=== PATIENT | male | born 1950 | race Caucasian/White ===

== ENCOUNTER 2016-06-07 14:50 | Emergency (ER) | payer OTHER ==
[~2016-06-07] VITALS: Ht 172.7 cm; Wt 76.2 kg
[2016-06-07 14:54] VITALS: BP 157/97
[2016-06-07] MEDS ORDERED: LISINOPRIL5 M1 PO (16:02)
[2016-06-07] MEDS ORDERED: METOPROLOL TART25 M1 PO (16:02)
--- NOTE | 2016-06-07 16:03 | ULTRASOUND REPORT ---
EXAMINATION: US TRIPLEX LOWER EXTREMITY, LEFT CLINICAL INFORMATION: Left calf pain COMPARISON: None. TECHNIQUE: Color-flow triplex imaging with spectral analysis and compression Doppler were performed on the left lower extremity. FINDINGS: Respiratory variation, normal compression and augmented flow are noted throughout the lower extremity. The visualized common femoral vein, superficial femoral vein, profunda femoral vein, popliteal vein and midcalf peroneal and posterior tibial venous segments show no evidence of deep venous thrombosis. There is no Gonzalez's cyst. IMPRESSION: Normal triplex scan without evidence of deep venous thrombosis involving the left lower extremity.
--- NOTE | 2016-06-07 16:12 | ED UPPER/LOWER EXTREMITY COMPL ---
History of Present Illness General Chief Complaint: Lower Extremity Problems Stated Complaint: SENT BY MD DE LA FUENTE FOR LT LEG EVAL Source: patient Exam Limitations: no limitations Vital Signs & Intake/Output Vital Signs & Intake/Output Vital Signs Date Time Temp Pulse Resp B/P Pulse O2 O2 Flow FiO2 Ox Delivery Rate 06/07 1454 97.1 83 20 157/97 98 Room Air Allergies Coded Allergies: No Known Allergies (06/07/16) Reconcile Medications Lisinopril 5 MG TABLET 1 TAB PO DAILY HTN (Reported) Meloxicam (Mobic) 15 MG TABLET 1 TAB PO DAILY PRN PAIN Metoprolol Tartrate 25 MG TABLET 1 TAB PO BID HTN (Reported) Triage Note: C/O LEFT CALF PAIN SINCE 929. STATES HE WAS WALKING UP AN INCLINE WHEN THE PAIN BEGAN. 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 Triage Nurses Notes Reviewed? yes Onset: Gradual Duration: hour(s): (6) Timing: no prior history Severity: moderate Severity Numbers: 6 Pain/Injury Location: Left: Leg. Method of Injury: unknown Modifying Factors: Improves With: immobilization. Worsens With: movement. HPI: Patient is a 65-year-old male presenting to the emergency department with chief complaint of left calf pain that started 6 hours prior to arrival. Denies any known injury. Pain is achy throbbing worse with movement and palpation. He took an aspirin earlier today without relief. The pain was not improving so he decided to come in for evaluation. Denies numbness or tingling. Denies any nausea vomiting fevers or chills chest pain or shortness of breath. No history of blood clots. (YAAKOV ADDISON) Past History Travel History Traveled to [place] past 21 day No Medical History Any Pertinent Medical History? see below for history Cardiovascular: hypertension Surgical History Surgical History: non-contributory Psychosocial History What is your primary language Wallisian Tobacco Use: Quit >30 days ago ETOH Use: occasional use Illicit Drug Use: denies illicit drug use Family History Hx Contributory? No (YAAKOV ADDISON) Review of Systems Review of Systems Constitutional: Reports: no symptoms. Comments Review of systems: See HPI, All other systems negative. Constitutional, no chills fever or weight loss HEENT: No visual changes no sore throat no congestion Cardiovascular: No chest pain ,palpitation Skin, no jaundice no rashes Respiratory: No dyspnea cough sputum or hemoptysis GI: No nausea no vomiting : No dysuria No hematuria Muscle skeletal: no back pain, no neck pain, Neurologic: No numbness no confusion Psych: No stress anxiety Immunology: No splenectomy or history of AIDS (ELIDA DUNN,YAAKOV) Physical Exam Physical Exam General Appearance: well developed/nourished, no apparent distress, alert, awake , comfortable Comments: Well-developed well-nourished person in no acute distress HEENT: Pupils equally round and reactive to light and accommodation. Nose is atraumatic. Neck: Normal inspection Cardiovascular: Regular rate and rhythms no murmurs rubs or gallops, normal JVP Respiratory: Chest nontender. No respiratory distress.breath sounds clear to auscultation bilaterally Extremity: No edema, TENDER TO PALPATION OVER LEFT CALF, NO EDEMEA, ERYTHEMA OR ECHYMOSIS. NEGATIVE OCHOA SIGN. Pedal pulses are 2+ bilaterally. Full range of motion of lower extremities withouT difficulty. Left calf pain with dorsiflexion and plantar flexion of the left lower extremity. No pain to palpation over the left patella, left ankle or foot. Neuro: Alert oriented x3, motor sensory normal Skin: No appreciable rash on exposed skin, skin is warm and dry. Psych: Mood and affect is normal, memory and judgment is normal. (ELIDA DUNN,YAAKOV) Progress Differential Diagnosis: contusion, dislocation, DVT, fracture, sprain, tendon injury Plan of Care: Patient informed of negative venous Doppler. Likely muscle strain. Educated on warm compresses elevation. Patient will be given anti-inflammatories to help with pain. He'll follow-up with his primary care physician for worsening symptoms or concerns. Diagnostic Imaging: Viewed by Me: Ultrasound. Discussed w/RAD: Ultrasound. Radiology Impression: PATIENT: KASHIF MASTERS PRESENT AGE: 65 PATIENT ACCOUNT NO: [id number] : 50 LOCATION: [facility] ORDERING PHYSICIAN: YAAKOV DUNN SERVICE DATE: 06/07/16-8598 EXAM TYPE: US - US-UNILATERAL VENOUS DOPPLER EXAMINATION: US TRIPLEX LOWER EXTREMITY, LEFT CLINICAL INFORMATION: Left calf pain COMPARISON: None. TECHNIQUE: Color-flow triplex imaging with spectral analysis and compression Doppler were performed on the left lower extremity. FINDINGS: Respiratory variation, normal compression and augmented flow are noted throughout the lower extremity. The visualized common femoral vein, superficial femoral vein, profunda femoral vein, popliteal vein and midcalf peroneal and posterior tibial venous segments show no evidence of deep venous thrombosis. There is no Gonzalez's cyst. IMPRESSION: Normal triplex scan without evidence of deep venous thrombosis involving the left lower extremity. DICTATED BY: JOSE LUIS POSADAS MD DATE/TIME DICTATED:06/07/161558 STATIONARY EQUIPMENT MECHANIC:OLIVE DATE/TIME TRANSCRIBED:06/07/161558 Comments: Patient declined pain medication here in the emergency department. He was informed of negative ultrasound. Likely muscle strain. Patient will follow up with PCP. (YAAKOV ADDISON) Departure Departure Time of Disposition: 1616 Disposition: HOME OR SELF CARE Condition: Stable Clinical Impression Primary Impression: Calf pain Qualifiers: Laterality: left Qualified Code: M79.662 - Pain in left lower leg Referrals: LEISA FAUSTIN,JIMENEZ Leal (PCP/Family) Additional Instructions: Follow-up with your primary care physician call to make an appointment. Elevate as much as possible. Departure Forms: Customer Survey General Discharge Information Prescriptions: Current Visit Scripts Meloxicam (Mobic) 1 TAB PO DAILY PRN PAIN #14 TAB (YAAKOV ADDISON) PA/[employer]CEMENT OFFICER Co-Sign Statement Statement: ED Attending supervision documentation- [X] I saw and evaluated the patient. I have also reviewed all the pertinent lab results and diagnostic results. I agree with the findings and the plan of care as documented in the PA's/[employer]ORCEMENT OFFICER's documentation. [] I have reviewed the ED Record and agree with the PA's/[employer] ENFORCEMENT OFFICER's documentation. [] Additions or exceptions (if any) to the PAs/[employer] ENFORCEMENT OFFICER's note and plan are summarized below: [] (ASHA GAMING DO)
[2016-06-07] MEDS ORDERED: MOBIC15 M1 PO (16:20)
== END 2016-06-07 16:50 ==
LOC: ERH 14:50
DX: M79.662 Pain in left lower leg (principal)